=== PATIENT | male | born 1975 | race Caucasian/White ===

== ENCOUNTER 2023-11-17 06:35 | Day surgery (SDC) | payer BC ==
[2023-11-17] MEDS ORDERED: Lactated Ringers 1,000 ML IV ONE (07:07)
[2023-11-17] MEDS ORDERED: DIPRIVAN 200 MG/20 ML IV ONE ×2 (07:47→08:06)
[2023-11-17 08:47] VITALS: RESP 18; TEMP 97.6; O2SAT 97
[2023-11-17 09:02] VITALS: BP 126/56; PULSE 72
--- NOTE | 2023-11-18 12:21 | OP ---
SURGERY DATE/TIME: 11/17/2023 1841 - 3132 PREOPERATIVE DIAGNOSIS: Screening exam. POSTOPERATIVE DIAGNOSIS: Normal colon. PROCEDURE: Colonoscopy. SURGEON: Jacinto Bruno MD ANESTHESIA: Medications were given by the anesthesia department. INDICATIONS: The patient is a 48-year-old white male patient presenting now for screening colonoscopy. He was appraised of the risks of the procedure including risk of perforation, phlebitis, untoward reaction to medication, bleeding, and missed lesions. The patient verbalized his understanding and desire to have procedure performed. DESCRIPTION OF PROCEDURE AND FINDINGS: The patient was given medication by the anesthesia department and had continuous pulse oximetry, ECG monitoring, and intermittent blood pressure monitoring during the examination. He was placed in the left lateral decubitus position. Digital rectal examination was performed and revealed normal anal sphincter tone, no masses, and a normal prostate. The flexible Olympus videocolonoscope was used to intubate the rectum. A view of the colon was developed sequentially to the cecum. Upon insertion and withdrawal, including retroflexed view in the rectum, no mucosal lesions were encountered. The scope was removed. The patient tolerated the procedure well and was sent back to [facility] in good condition. The prep was noted to be fair to good.
== END 2023-11-17 09:02 | disposition home or self-care (01) ==
LOC: SDC 06:35
PROVIDERS: ATTEND Family Medicine
DX: Z12.11 Encounter for screening for malignant neoplasm of colon (principal)
CPT/HCPCS: J2704